=== PATIENT | female | born 1995 | race Caucasian/White ===

== ENCOUNTER 2017-10-16 20:35 | Emergency (ER) | END 2017-10-17 04:30 | disposition home or self-care (01) ==

== ENCOUNTER 2018-01-02 18:06 | Emergency (ER) | END 2018-01-02 23:50 | disposition home or self-care (01) ==

== ENCOUNTER 2018-02-25 22:53 | Emergency (ER) | END 2018-02-26 02:07 | disposition home or self-care (01) ==

== ENCOUNTER 2018-12-26 16:20 | Emergency (ER) | payer BC ==
[~2018-12-26] VITALS: Ht 165.1 cm; Wt 121.6 kg
[~2018-12-26 16:20] MED LIST: ACET325T33 PO; CIPR500T4 PO; DOCU-144 PO; FAMO-96 PO; HYDR-4011 PO; IBUP-1542 PO; MAG-19 PO; NAPR-985 PO; OMEP20CA16 PO; ONDA4TAB14 PO; SULF1TAB31 PO; birth control pills
[2018-12-26 16:22] VITALS: Ht 165.1 cm; Wt 121.6 kg
[2018-12-26] MEDS ORDERED: LIDOCAINE 1% (MPF) 5 ML VIAL INJ ONE (17:00)
[2018-12-26] MEDS ORDERED: CEPH-443 PO (17:20)
[2018-12-26] MEDS ORDERED: SULF1TAB31 PO (17:20)
[2018-12-26] MEDS ORDERED: IBUP800T48 PO (17:21)
--- NOTE | 2018-12-26 17:22 | ERD ---
ER Documentation Chief Complaint Chief Complaint possible abcess mid forehead x1 wk HPI 23 year old female presents with a lump on her forehead x 1 week. The lump is located between her eyebrows. She states that it started out as a pimple on her face and has grown and gotten painful. She denies any fevers, chills, or other signs of systemic infection. She has tried ice packs and hydrogen peroxide at home with no relief of her sx. She has never had a previous incidence like this in the past. She states 7/10 sharp intensity pain that is localized to the affected area. ROS All systems reviewed and are negative except as per history of present illness. Medications Home Meds Active Scripts Ibuprofen* (Motrin*) 800 Mg Tab, 800 MG PO Q6H PRN for PAIN AND OR ELEVATED TEMP , #30 TAB Prov:ARSH MUÑOZ PA-C 12/26/18 Cephalexin* (Keflex*) 500 Mg Capsule, 500 MG PO QID for 5 Days, CAP Prov:ARSH MUÑOZ PA-C 12/26/18 Sulfamethoxazole/Trimethoprim* (Bactrim Ds* Tablet) 1 Each Tablet, 1 TAB PO BID, #14 TAB Prov:ARHS MUÑOZ PA-C 12/26/18 Famotidine* (Pepcid*) 20 Mg Tablet, 20 MG PO BID for 4 Days, #30 TAB Prov:HELEN OSUNA PA-C 02/26/18 Hydrocodone/Acetaminophen ([place] 5-325 Tablet) 1 Each Tablet, 1 TAB PO Q6H PRN for PAIN, #7 TAB Prov:HELEN OSUNA PA-C 02/26/18 Ibuprofen* (Motrin*) 600 Mg Tab, 600 MG PO Q6H PRN for PAIN AND OR ELEVATED TEMP, #30 TAB Prov:JAIME KASPER PA-C 01/02/18 Ondansetron (Ondansetron Odt) 4 Mg Tab.rapdis, 4 MG PO Q6H PRN for NAUSEA AND/OR VOMITING, #10 TAB Prov:JAIME KASPER PA-C 01/02/18 Omeprazole* (Omeprazole*) 20 Mg Capsule.dr, 20 MG PO BID, #20 Prov:JAIME KASPER PA-C 01/02/18 Magaldrate/Simethicone* (Mylanta*) 355 Ml Susp, 30 ML PO QID PRN for GASTROINTESTINAL UPSET, #1 BOTTLE Prov:ESME JOHN NP 10/17/17 Omeprazole* (Omeprazole*) 20 Mg Capsule.dr, 20 MG PO DAILY, #30 Prov:ESME JOHN NP 10/17/17 Hydrocodone/Acetaminophen ([place] 5-325 Tablet) 1 Each Tablet, 1 TAB PO Q6H PRN for SEVERE PAIN LEVEL 7-10, #20 TAB Prov:ESME JOHN NP 10/17/17 Ciprofloxacin Hcl* (Ciprofloxacin Hcl*) 500 Mg Tablet, 500 MG PO BID for 10 Days, TAB Prov:ESME JOHN NP 10/17/17 Famotidine* (Pepcid*) 20 Mg Tablet, 20 MG PO BID, #20 TAB Prov:KIKI ROGERS PA-C 03/15/17 Docusate Sodium* (Colace*) 100 Mg Capsule, 100 MG PO TID, #30 CAP Prov:KIKI ROGERS PA-C 03/15/17 Ondansetron (Ondansetron Odt) 4 Mg Tab.rapdis, 4 MG PO Q6H PRN for NAUSEA AND/OR VOMITING for 7 Days, TAB Prov:JAMEEL CHARLES PA-C 10/26/16 Naproxen* (Naprosyn*) 500 Mg Tablet, 500 MG PO BID for 7 Days, TAB Prov:JAMEEL CHARLES PA-C 10/26/16 Sulfamethoxazole/Trimethoprim* (Bactrim Ds* Tablet) 1 Each Tablet, 1 TAB PO BID for 14 Days, TAB Prov:JAMEEL CHARLES PA-C 10/26/16 Acetaminophen* (Tylenol*) 325 Mg Tablet, 650 MG PO Q4H PRN for MILD PAIN LEVEL 1-3 for 5 Days, TAB Prov:NEY HOWE NP 08/26/15 Reported Medications [ control pills] No Conflict Check 04/04/13 Allergies Allergies: Coded Allergies: No Known Allergy (Unverified , 12/26/18) PMhx/Soc History of Surgery: Yes (cholecystectomy) Anesthesia Reaction: No Hx Neurological Disorder: No Hx Respiratory Disorders: No Hx Cardiac Disorders: No Hx Psychiatric Problems: No Hx Miscellaneous Medical Probl: Yes (chronic lower back pain, insomnia ) Hx Alcohol Use: Yes (Ocassionally) Hx Substance Use: Yes (marijuana) Hx Tobacco Use: Yes (every once in a while) Physical Exam Vitals Vital Signs Date Temp Pulse Resp B/P (MAP) Pulse Ox O2 O2 Flow FiO2 Time Delivery Rate 12/26/18 98.4 71 18 128/71 99 Room Air 17:33 (90) 12/26/18 98.6 78 18 139/82 98 16:22 (101) Physical Exam Const: No acute distress Head: Atraumatic Eyes: Normal Conjunctiva ENT: Normal External Ears, Nose and Mouth. Neck: Full range of motion. No meningismus. Resp: Clear to auscultation bilaterally Cardio: Regular rate and rhythm, no murmurs Abd: Soft, non tender, non distended. Normal bowel sounds Skin: No petechiae or rashes Back: No midline or flank tenderness Ext: No cyanosis, or edema Neur: Awake and alert Psych: Normal Mood and Affect Results 24 hrs Current Medications Medications Dose Sig/Josr Start Time Status Last (Trade) Ordered Route PRN Stop Time Admin Dose Reason Admin Lidocaine 5 ml ONCE ONCE 12/26/18 DC (Xylocaine INJ 17:00 1% (Mpf)) 12/26/18 17:01 Ibuprofen 800 mg ONCE ONCE 12/26/18 DC 12/26/18 (Motrin) PO 17:30 17:20 12/26/18 17:31 Procedures/MDM ED COURSE: The patient was stable throughout ED course. I kept the patient informed of laboratory and diagnostic imaging results throughout the ED course. DIAGNOSTIC IMAGING: none PROCEDURES: INCISION AND DRAINAGE: The patient was verbally consented prior to procedure. Patient was explained the risks, benefits and alternatives to this procedure. Location: forehead Abscess size: 10 cm Anesthesia: local 1% lidocaine, 5 cc Preparation: The area was prepped in a sterile fashion using betadine x3 cleanses. A sterile field was prepared. Technique: A sterile 19 guage needle was used to make a 1 cm incision into the abscess. Procedure: A midline abscess incision was made using a sterile needle. Purulent material was expressed with direct pressure. Blunt probing was used to break up loculations. Bleeding was minimal. Packing: no packing was done at this time due to the small size of the incision by the needle The patient tolerated the procedure well with no complications. The wound was dressed in sterile gauze. The patient was neurovascularly intact post-procedure. Post-procedural wound care was discussed with the patient for 2 days. MEDICATIONS GIVEN: Motrin Patient tolerated medication well with no adverse reactions. Patient reported improvement in pain. MEDICAL DECISION MAKING: Patient is a 23 year old female presenting with a lump on her forehead x 1 week. The lump was hard and tender. I attempted to I&D the lump and some d/c was expelled. Patient was given ice pack and motrin for the inflammation and pain. History & Physical and other data not c/w emergent process including deep tracking infection, sepsis, lymphangitis at this time. Patient was discharged with abx and told to return in 2 days for a recheck. Patient was also instructed to follow up with her PCP in the next 1-2 days. Vital signs were reviewed. Patient is afebrile. Patient was not hypoxic. Patient was hemodynamically stable. PRESCRIPTION: motrin, keflex, bactrim DISCHARGE: At this time, patient is stable for discharge and outpatient management. I have instructed the patient to follow-up with his/her primary care physician in 1-2 days. I have discussed with the patient the possibility of needing to see a specialist for further workup and imaging studies if symptoms persist. I have instructed the patient to promptly return to the ER for any new or worsening symptoms including increased pain, fever, nausea, vomiting, weakness or LOC. The patient and/or family expressed understanding of and agreement with this plan. All questions were answered. Home care instructions were provided. Disclaimer: Inadvertent spelling and grammatical errors are likely due to EHR/dictation software use and do not reflect on the overall quality of patient care. Also, please note that the electronic time recorded on this note does not necessarily reflect the actual time of the patient encounter. Departure Diagnosis: Primary Impression: Abscess Condition: Fair Patient Instructions: Abscess, Incision And Drainage Referrals: COMMUNITY CLINICS YOU HAVE RECEIVED A MEDICAL SCREENING EXAM AND THE RESULTS INDICATE THAT YOU DO NOT HAVE A CONDITION THAT REQUIRES URGENT TREATMENT IN THE EMERGENCY DEPARTMENT. FURTHER EVALUATION AND TREATMENT OF YOUR CONDITION CAN WAIT UNTIL YOU ARE SEEN IN YOUR DOCTORS OFFICE WITHIN THE NEXT 1-2 DAYS. IT IS YOUR RESPONSIBILITY TO MAKE AN APPOINTMENT FOR FOLOW-UP CARE. IF YOU HAVE A PRIMARY DOCTOR --you should call your primary doctor and schedule an appointment IF YOU DO NOT HAVE A PRIMARY DOCTOR YOU CAN CALL OUR PHYSICIAN REFERRAL HOTLINE AT IF YOU CAN NOT AFFORD TO SEE A PHYSICIAN YOU CAN CHOSE FROM THE FOLLOWING [facility] [address] [facility] [address] [facility] [address] [facility] [address] [facility] [address] [facility] [facility] [address] [facility]. [facility] YOU HAVE RECEIVED A MEDICAL SCREENING EXAM AND THE RESULTS INDICATE THAT YOU DO NOT HAVE A CONDITION THAT REQUIRES URGENT TREATMENT IN THE EMERGENCY DEPARTMENT. FURTHER EVALUATION AND TREATMENT OF YOUR CONDITION CAN WAIT UNTIL YOU ARE SEEN IN YOUR DOCTORS OFFICE WITHIN THE NEXT 1-2 DAYS. IT IS YOUR RESPONSIBILITY TO MAKE AN APPOINTMENT FOR FOLOW-UP CARE. IF YOU HAVE A PRIMARY DOCTOR --you should call your primary doctor and schedule and appointment IF YOU DO NOT HAVE A PRIMARY DOCTOR YOU CAN CALL OUR PHYSICIAN REFERRAL HOTLINE AT . IF YOU CAN NOT AFFORD TO SEE A PHYSICIAN YOU CAN CHOSE FROM THE FOLLOWING [facility]: [facility] [address] [place] [address] [facility] [address] [place] [address] [facility] [address] [place] [address] Additional Instructions: come back for recheck in 2 days. Use Ice pack to help with inflammation. Call your primary care doctor TOMORROW for an appointment during the next 1-2 days.See the doctor sooner or return here if your condition worsens before your appointment time. ARSH MUÑOZ PA-C Dec 26, 2018 17:22
[2018-12-26] MEDS ORDERED: IBUPROFEN 800 MG TAB PO ONE (17:30)
[2018-12-26 17:33] VITALS: BP 128/71; PULSE 71; RESP 18
== END 2018-12-26 17:37 | disposition home or self-care (01) ==
LOC: FTE 16:20
DX: L02.01 Cutaneous abscess of face (principal); F17.210 Nicotine dependence, cigarettes, uncomplicated
CPT/HCPCS: 10060; Z7502; Z7610

== ENCOUNTER 2018-12-28 12:44 | Emergency (ER) | payer BC ==
[~2018-12-28] VITALS: Ht 165.1 cm; Wt 120.0 kg
[~2018-12-28 12:44] MED LIST changes: +CEPH-443 PO; +IBUP800T48 PO
[2018-12-28 12:50] VITALS: BP 123/62; PULSE 87; RESP 18; Ht 165.1 cm; Wt 120.0 kg
[2018-12-28] MEDS ORDERED: MUPI22OI2 TOP (13:42)
--- NOTE | 2018-12-28 13:53 | ERD ---
ER Documentation Chief Complaint Chief Complaint for recehck on forehead abcess HPI 23-year-old female presenting with an abscess to her mid forehead. Abscess at the site of the glabella. She was seen 2 days ago and given antibiotics however she still noted to have some drainage from the site. She states she noted some swelling around her eyes but no pain with ocular movement. Denies any fevers. Has no other medical problems. NKDA. Surgical history denies. Social history denies ROS All systems reviewed and are negative except as per history of present illness. Medications Home Meds Active Scripts Mupirocin* (Bactroban*) 2% -22 Gram Oint...g., 1 APPLIC TOP BID for 7 Days, EA Prov:HELEN OSUNA PA-C 12/28/18 Ibuprofen* (Motrin*) 800 Mg Tab, 800 MG PO Q6H PRN for PAIN AND OR ELEVATED TEMP, #30 TAB Prov:ARSH MUÑOZ PA-C 12/26/18 Cephalexin* (Keflex*) 500 Mg Capsule, 500 MG PO QID for 5 Days, CAP Prov:ARSH MUÑOZ PA-C 12/26/18 Sulfamethoxazole/Trimethoprim* (Bactrim Ds* Tablet) 1 Each Tablet, 1 TAB PO BID, #14 TAB Prov:ARSH MUÑOZ PA-C 12/26/18 Famotidine* (Pepcid*) 20 Mg Tablet, 20 MG PO BID for 4 Days, #30 TAB Prov:HELEN OSUNA PA-C 02/26/18 Hydrocodone/Acetaminophen ([place] 5-325 Tablet) 1 Each Tablet, 1 TAB PO Q6H PRN for PAIN, #7 TAB Prov:HELEN OSUNA PA-C 02/26/18 Ibuprofen* (Motrin*) 600 Mg Tab, 600 MG PO Q6H PRN for PAIN AND OR ELEVATED TEM P, #30 TAB Prov:JAIME KASPER PA-C 01/02/18 Ondansetron (Ondansetron Odt) 4 Mg Tab.rapdis, 4 MG PO Q6H PRN for NAUSEA AND/OR VOMITING, #10 TAB Prov:JAIME KASPER PA-C 01/02/18 Omeprazole* (Omeprazole*) 20 Mg Capsule.dr, 20 MG PO BID, #20 Prov:JAIME KASPER PA-C 01/02/18 Magaldrate/Simethicone* (Mylanta*) 355 Ml Susp, 30 ML PO QID PRN for GASTROINTESTINAL UPSET, #1 BOTTLE Prov:ESME JOHN NP 10/17/17 Omeprazole* (Omeprazole*) 20 Mg Capsule., 20 MG PO DAILY, #30 Prov:ESME JOHN NP 10/17/17 Hydrocodone/Acetaminophen ([place] 5-325 Tablet) 1 Each Tablet, 1 TAB PO Q6H PRN for SEVERE PAIN LEVEL 7-10, #20 TAB Prov:ESME JOHN NP 10/17/17 Ciprofloxacin Hcl* (Ciprofloxacin Hcl*) 500 Mg Tablet, 500 MG PO BID for 10 Days, TAB Prov:ESME JOHN NP 10/17/17 Famotidine* (Pepcid*) 20 Mg Tablet, 20 MG PO BID, #20 TAB Prov:KIKI ROGERS PA-C 03/15/17 Docusate Sodium* (Colace*) 100 Mg Capsule, 100 MG PO TID, #30 CAP Prov:KIKI ROGERS PA-C 03/15/17 Ondansetron (Ondansetron Odt) 4 Mg Tab.rapdis, 4 MG PO Q6H PRN for NAUSEA AND/OR VOMITING for 7 Days, TAB Prov:JAMEEL CHARLES PA-C 10/26/16 Naproxen* (Naprosyn*) 500 Mg Tablet, 500 MG PO BID for 7 Days, TAB Prov:JAMEEL CHARLES PA-C 10/26/16 Sulfamethoxazole/Trimethoprim* (Bactrim Ds* Tablet) 1 Each Tablet, 1 TAB PO BID for 14 Days, TAB Prov:JAMEEL CHARLES PA-C 10/26/16 Acetaminophen* (Tylenol*) 325 Mg Tablet, 650 MG PO Q4H PRN for MILD PAIN LEVEL 1-3 for 5 Days, TAB Prov:NEY HOWE NP 08/26/15 Reported Medications [ control pills] No Conflict Check 04/04/13 Allergies Allergies: Coded Allergies: No Known Allergy (Unverified , 12/26/18) PMhx/Soc History of Surgery: Yes (cholecystectomy) Anesthesia Reaction: No Hx Neurological Disorder: No Hx Respiratory Disorders: No Hx Cardiac Disorders: No Hx Psychiatric Problems: No Hx Miscellaneous Medical Probl: Yes (chronic lower back pain, insomnia ) Hx Alcohol Use: Yes (Ocassionally) Hx Substance Use: Yes (marijuana) Hx Tobacco Use: Yes (every once in a while) FmHx Family History: No diabetes, No coronary disease, No other Physical Exam Vitals Vital Signs Date Temp Pulse Resp B/P (MAP) Pulse Ox O2 O2 Flow FiO2 Time Delivery Rate 12/28/18 98.3 87 18 123/62 98 12:50 (82) Physical Exam GENERAL: The patient is well-appearing, well-nourished, in no acute distress HEENT: Atraumatic. Conjunctivae are pink. Pupils equal, round, and reactive to light. There is no scleral icterus. Tympanic membranes clear bilaterally. Oropharynx clear. CHEST: Clear to auscultation bilaterally. There are no rales, wheezes or rhonchi. HEART: Regular rate and rhythm. No murmurs, clicks, rubs or gallops. SKIN: Erythematous site at the glabella about the size of a quarter. Purulence noted in the center with mild drainage. Procedures/MDM ER course: Site cleaned and forceps were used to remove pus plug. DM: 23-year-old female presenting with abscess to glabella. Mucous plug was removed and site was re-clean. Patient is recommended to apply warm compresses at home and continue oral antibiotics. Patient is told to apply antibiotic cream. Patient is told symptoms change or worsen to return immediately to the ER. All questions answered at discharge Departure Diagnosis: Primary Impression: Abscess Condition: Stable Patient Instructions: Abscess, Incision And Drainage Referrals: COMMUNITY CLINICS YOU HAVE RECEIVED A MEDICAL SCREENING EXAM AND THE RESULTS INDICATE THAT YOU DO NOT HAVE A CONDITION THAT REQUIRES URGENT TREATMENT IN THE EMERGENCY DEPARTMENT. FURTHER EVALUATION AND TREATMENT OF YOUR CONDITION CAN WAIT UNTIL YOU ARE SEEN IN YOUR DOCTORS OFFICE WITHIN THE NEXT 1-2 DAYS. IT IS YOUR RESPONSIBILITY TO MAKE AN APPOINTMENT FOR FOLOW-UP CARE. IF YOU HAVE A PRIMARY DOCTOR --you should call your primary doctor and schedule an appointment IF YOU DO NOT HAVE A PRIMARY DOCTOR YOU CAN CALL OUR PHYSICIAN REFERRAL HOTLINE AT IF YOU CAN NOT AFFORD TO SEE A PHYSICIAN YOU CAN CHOSE FROM THE FOLLOWING [facility] [address] [facility] [address] [facility] [place] [address] [facility] [address] [facility]. [facility] [address] [facility] [facility]. [address] Additional Instructions: FOLLOW UP WITH YOUR PRIMARY CARE PHYSICIAN TOMORROW.Return to this facility if you are not improving as expected. HELEN OSUNA PA-C Dec 28, 2018 13:53
== END 2018-12-28 14:35 | disposition home or self-care (01) ==
LOC: FTE 12:44
DX: L02.01 Cutaneous abscess of face (principal); Z87.891 Personal history of nicotine dependence
CPT/HCPCS: 99283